=== PATIENT | female | born 1990 | race Caucasian/White ===

== ENCOUNTER 2016-12-08 18:37 | Emergency (ER) | payer SELFPAY ==
[~2016-12-08] VITALS: Ht 162.6 cm; Wt 72.0 kg
[2016-12-08 22:33] VITALS: BP 121/65
== END 2016-12-08 22:51 | disposition home or self-care (01) ==
LOC: ER 22:01
DX: S63.592A Other specified sprain of left wrist, initial encounter (principal); W01.0XXA Fall on same level from slipping, tripping and stumbling without subsequent striking against object, initial encounter; Y93.89 Activity, other specified; Y99.8 Other external cause status; Y92.89 Other specified places as the place of occurrence of the external cause
CPT/HCPCS: 29125; 73110; 73130; 99284

== ENCOUNTER 2018-02-11 12:35 | Emergency (ER) | payer SELFPAY ==
[~2018-02-11] VITALS: Ht 160 cm; Wt 79.0 kg
[2018-02-11 13:41] LABS: CLARITY URINE CLEAR (CLEAR); COLOR URINE YELLOW (YELLOW); KETONES URINE NEGATIVE (NEGATIVE); LEUKOCYTE ESTERASE URINE TRACE (NEGATIVE); NITRITE URINE POSITIVE (NEGATIVE); OCCULT BLOOD URINE NEGATIVE (NEGATIVE); PROTEIN URINE NEGATIVE (NEGATIVE); SPECIFIC GRAVITY URINE 1.015 (1.005-1.030); UROBILINOGEN URINE 0.2 E.U./dL (0.2-1.0)
[2018-02-11 14:17] LABS: BASOPHILS % 0.2 % (0.0-2.0); EOSINOPHILS % 0.4 % (0.0-5.0); HEMATOCRIT. 39.3 % (36.0-48.0); HEMOGLOBIN. 13.1 g/dL (12.0-16.0); LYMPHOCYTES % 17.2 % (20.0-50.0); MEAN CORPUSCULAR HEMOGLOBIN 29.6 pg (28.0-32.0); MEAN CORPUSCULAR VOLUME 88.9 fL (81.0-99.0); MEAN PLATELET VOLUME 9.4 fl (7.4-10.4); MONOCYTES % 2.5 % (2.0-8.0); NEUTROPHILS % 79.7 % (40.0-76.0); PLATELET 218 x1000/uL (130-400); RED BLOOD CELL COUNT 4.43 mill/uL (4.2-5.4); RED CELL DISTRIBUTION WIDTH 13.5 % (11.6-14.6)
[2018-02-11 14:28] LABS: CHLORIDE 104 mEq/L (98-107)
[2018-02-11 14:30] LABS: HCG SCREEN NEGATIVE
[2018-02-11 14:31] LABS: PARTIAL THROMBOPLASTIN TIME 25.4 sec (23.4-31.0); PROTHROMBIN TIME 10.8 sec (9.4-11.6)
[2018-02-11 16:23] VITALS: BP 100/54
== END 2018-02-11 16:28 | disposition home or self-care (01) ==
LOC: ER 14:36
DX: R31.0 Gross hematuria (principal); R11.10 Vomiting, unspecified
CPT/HCPCS: 36415; 80053; 81003; 84703; 85025; 85610; 85730; 99284

== ENCOUNTER 2024-05-13 02:45 | Emergency (ER) | payer SELFPAY ==
[~2024-05-13] VITALS: Ht 162.6 cm; Wt 91.0 kg
[2024-05-13] MEDS ORDERED: TETANUS, DIPHTHERIA, PERTUSSIS VAC/PF 0.5ML (>10YR OLD) IM ONE ×2 (03:00→04:30)
[2024-05-13] MEDS ORDERED: LIDOCAINE HCL/EPINEPHRINE 1%-EPI 1:100,000 10ML VIAL INFIL ONE (03:00)
[2024-05-13] MEDS ORDERED: ACETAMINOPHEN 325MG TABLET PO ONE (03:00)
[2024-05-13 03:20] VITALS: BP 136/87; PULSE 114; RESP 18; TEMP 97.8; O2SAT 98
[2024-05-13] MEDS ORDERED: ACETAMINOPHEN 325MG TABLET PO NR (04:00)
== END 2024-05-13 03:28 | disposition left against medical advice (07) ==
LOC: ER 02:45
DX: S00.93XA Contusion of unspecified part of head, initial encounter (principal); J45.909 Unspecified asthma, uncomplicated; Y08.89XA Assault by other specified means, initial encounter; Y93.89 Activity, other specified; Y92.89 Other specified places as the place of occurrence of the external cause; Y99.8 Other external cause status
CPT/HCPCS: 99283